=== PATIENT | female | born 1990 | race Hispanic/Latino ===

== ENCOUNTER 2021-12-05 02:03 | Emergency (ER) | payer BC ==
[~2021-12-05] VITALS: Ht 172.7 cm; Wt 98.0 kg
[2021-12-05] MEDS ORDERED: KETOROLAC TROMETHAMINE 30 MG/ML VIAL IM STA (02:49)
[2021-12-05] MEDS ORDERED: PREDNISONE20 MG PO (02:53)
[2021-12-05] MEDS ORDERED: KETOROLAC TROME10 MG PO (02:53)
[2021-12-05 03:02] VITALS: BP 143/105
[2021-12-05] MEDS ORDERED: KETOROLAC TROMETHAMINE 30 MG/ML VIAL ONE (03:04)
== END 2021-12-05 03:05 | disposition home or self-care (01) ==
LOC: FSED 02:49
DX: M54.32 Sciatica, left side (principal)
CPT/HCPCS: 96372; 99282; J1885